=== PATIENT | female | born 1955 | race Caucasian/White ===

== ENCOUNTER → 2016-07-21 | Outpatient (CLI) | payer BC ==
--- NOTE | 2016-07-21 14:04 | MM ---
Reason for exam: additional evaluation requested from prior study. Last mammogram was performed 6 months ago. History: Patient is postmenopausal. Physical Findings: Nurse did not find any significant physical abnormalities on exam. MG 3D Diag Mammo W/Cad OMA Bilateral CC and MLO view(s) were taken. Prior study comparison: January 25, 2016, right breast MG 3d diag mammo w/cad RT. June 27, 2015, right breast MG 3d work up w/cad RT. The breast tissue is heterogeneously dense. This may lower the sensitivity of mammography. No significant new findings when compared with previous films. These results were verbally communicated with the patient and result sheet given to the patient on 07/21/16. ASSESSMENT: Benign, BI-RAD 2 RECOMMENDATION: Routine screening mammogram of both breasts in 1 year.
== END | disposition home or self-care (01) ==
LOC: RADMAMWWP 13:04
PROVIDERS: ATTEND Obstetrics & Gynecology
DX: R92.8 Other abnormal and inconclusive findings on diagnostic imaging of breast (principal)
CPT/HCPCS: G0204; G0279

== ENCOUNTER → 2016-08-07 | Outpatient (CLI) | payer BC ==
[2016-08-07 10:43] LABS: Basophils # (A) 0.1 k/uL (0-0.2); Basophils % (A) 1 %; CH 29.1; CHCM 30.9; Eosinophils # (A) 0.2 k/uL (0-0.7); Eosinophils % (A) 3 %; HCT 42.6 % (34.0-46.0); HDW 2.05; HGB 13.6 gm/dL (11.4-16.0); Luc # (Auto) 0.23; Luc % (Auto) 4; Lymphocytes # (A) 1.6 k/uL (1.0-4.8); Lymphocytes % (A) 24 %; MCH 30.2 pg (25.0-35.0); MCV 94.7 fL (80.0-100.0); Monocytes # (A) 0.5 k/uL (0-1.0); Monocytes % (A) 8 %; Neutrophils % (A) 61 %; RDW 13.5 % (11.5-15.5); WBC 6.5 k/uL (3.8-10.6); WBC (Perox) 6.96
== END | disposition home or self-care (01) ==
LOC: LABWHC1 09:55
PROVIDERS: ATTEND Family Medicine
DX: Z00.00 Encounter for general adult medical examination without abnormal findings (principal); F32.9 Major depressive disorder, single episode, unspecified; Z79.899 Other long term (current) drug therapy
CPT/HCPCS: 36415; 80061; 84443; 85025

== ENCOUNTER → 2017-09-28 | Outpatient (CLI) | payer OTHER ==
--- NOTE | 2017-09-29 14:34 | MM ---
Reason for exam: screening (asymptomatic). Last mammogram was performed 1 year and 2 months ago. History: Patient is postmenopausal. Physical Findings: A clinical breast exam by your physician is recommended on an annual basis and results should be correlated with mammographic findings. MG 3D Screening Mammo W/Cad Bilateral CC and MLO view(s) were taken. Prior study comparison: July 21, 2016, bilateral MG 3d diag mammo w/cad OMA. January 25, 2016, right breast MG 3d diag mammo w/cad RT. The breast tissue is heterogeneously dense. This may lower the sensitivity of mammography. No significant changes when compared with prior studies. ASSESSMENT: Benign, BI-RAD 2 RECOMMENDATION: Routine screening mammogram of both breasts in 1 year.
== END | disposition home or self-care (01) ==
LOC: RADMAMWWP 13:29
PROVIDERS: ATTEND Obstetrics & Gynecology
DX: Z12.31 Encounter for screening mammogram for malignant neoplasm of breast (principal)
CPT/HCPCS: 77063; 77067

== ENCOUNTER → 2019-03-01 | Outpatient (CLI) | payer OTHER ==
--- NOTE | 2019-03-01 10:31 | ECHOF ---
Referral Reason:I20.9 Angina pectoris, unspecified MEASUREMENTS -------- HEIGHT: 160.0 cm WEIGHT: 104.3 kg BP: 179/80 RVIDd: 3.2 cm (< 3.3) IVSd: 1.3 cm (0.6 - 1.1) LVIDd: 3.9 cm (3.9 - 5.3) LVPWd: 1.3 cm (0.6 - 1.1) IVSs: 1.7 cm LVIDs: 2.4 cm LVPWs: 1.6 cm LA Diam: 3.3 cm (2.7 - 3.8) LAESV Index (A-L): 25.48 ml/m Ao Diam: 2.5 cm (2.0 - 3.7) AV Cusp: 1.1 cm (1.5 - 2.6) MV EXCURSION: 12.495 mm (> 18.000) MV EF SLOPE: 64 mm/s (70 - 150) EPSS: 0.2 cm MV E Cb: 0.93 m/s MV DecT: 216 ms MV A Cb: 1.09 m/s MV E/A Ratio: 0.85 FINDINGS -------- Sinus rhythm. This was a technically difficult study with suboptimal views. The left ventricular size is normal. There is mild concentric left ventricular hypertrophy. Overa ll left ventricular systolic function is normal with, an EF between 60 - 65 %. The right ventricle is normal in size. Normal LA size by volume 22+/-6 ml/m2. The right atrium is normal in size. Lumason used Interatrial and interventricular septum intact. The aortic valve is trileaflet and appears structurally normal. The mitral valve is normal. The tricuspid valve appears structurally normal. The pulmonic valve was not well visualized. The aortic root size is normal. IVC Not well visulized. There is no pericardial effusion. CONCLUSIONS -------- 1. Sinus rhythm. 2. This was a technically difficult study with suboptimal views. 3. The left ventricular size is normal. 4. There is mild concentric left ventricular hypertrophy. 5. Overall left ventricular systolic function is normal with, an EF between 60 - 65 %. 6. The right ventricle is normal in size. 7. Normal LA size by volume 22+/-6 ml/m2. 8. The right atrium is normal in size. 9. Lumason used 10. Interatrial and interventricular septum intact. 11. The aortic valve is trileaflet and appears structurally normal. 12. The mitral valve is normal. 13. The tricuspid valve appears structurally normal. 14. The pulmonic valve was not well visualized. 15. The aortic root size is normal. 16. IVC Not well visulized. 17. There is no pericardial effusion. HOG PUSHER: Radha Gates RDCS
--- NOTE | 2019-03-01 13:35 | EST ---
EXERCISE STRESS AGE: 63 SEX: Female HT: 5'3" WT: 230 pounds PROTOCOL: Lexiscan Cardiolite STAGE: DURATION OF EXERCISE: HEART RATE REST: 90 BLOOD PRESSURE REST: 161/89 MAXIMUM HEART RATE ACHIEVED: 105 MAXIMUM BLOOD PRESSURE: 151/77 85% MPHR: 100% MPHR: METS: INDICATIONS: Angina pectoris CLINICAL INFORMATION: This is a Lexiscan stress test. Baseline EKG revealed normal sinus rhythm with a voltage criteria for LVH, nonspecific ST abnormality. With Lexiscan administration, heart rate changed from 90 to 99 beats per minute. Blood pressure changed from 160/89 to 151/77. EKG remained unremarkable. By EKG criteria, this is an unremarkable stress test with minor resting EKG changes. The nuclear scan results which are more pertinent will be reported by the radiologist. MMODL / IJN: [id number] /
--- NOTE | 2019-03-01 14:33 | NM ---
EXAMINATION TYPE: NM stress lexiscan cardiolite DATE OF EXAM: 03/01/2019 COMPARISON: NONE HISTORY: Angina pectoris. History of hypercholesteremia and family history of heart attack in mom wit h chest pain. TECHNIQUE: After the intravenous administration of 9.64 mCi Tc 99m Sestamibi - Cardiolite resting SP ECT images acquired 55 minutes post injection. The patient received 0.4mg Lexiscan, 26.1 mCi Tc 99m Sestamibi - Stress images obtained [address] injection FINDINGS: Review of stress and rest SPECT images demonstrates area of diminished color intensity on stress imag es versus rest images involving septal wall seen best on worse on the long axis images mid to apical segments in which acute ischemia cannot be excluded. Gated analysis shows overall estimated ejection fraction of 59 %. IMPRESSION: Cannot exclude stress-induced ischemia involving septal wall. Need to further investigate by direct catheter angiogram should be based on clinical correlation.
== END | disposition home or self-care (01) ==
LOC: RADNMMAIN 07:54
PROVIDERS: ATTEND Family Medicine
DX: I51.7 Cardiomegaly (principal)
CPT/HCPCS: 93017; 93306; 78452; A9500; Q9950

== ENCOUNTER 2019-03-29 06:34 | Day surgery (SDC) | payer OTHER ==
[2019-03-22 11:44] VITALS: BMI 40.7
[~2019-03-29 06:34] MED LIST: ALPRAZolam 0.25 MG TAB PO PRN; ALPRAZolam 0.5 MG TAB PO PRN; ASPIRIN 325 MG TAB PO STA; ATORVASTATIN 80 MG TAB PO STA; NITROGLYCERIN SL TABS 0.4 MG TAB SUBLINGUAL PRN; SODIUM CHLORIDE 0.9% 1,000 ML in EMPTY BAG 1 BAG IV ONE
[2019-03-29 07:21] LABS: Basophils # (A) 0.1 k/uL (0-0.2); Basophils % (A) 1 %; Eosinophils # (A) 0.4 k/uL (0-0.7); Eosinophils % (A) 4 %; HCT 43.4 % (34.0-46.0); HGB 13.7 gm/dL (11.4-16.0); Lymphocytes # (A) 2.4 k/uL (1.0-4.8); Lymphocytes % (A) 24 %; MCH 29.4 pg (25.0-35.0); MCHC 31.6 g/dL (31.0-37.0); MCV 93.1 fL (80.0-100.0); Mean Platelet Volume 6.8; Monocytes # (A) 0.8 k/uL (0-1.0); Monocytes % (A) 8 %; Neutrophils % (A) 60 %; Platelet Count 356 k/uL (150-450); RBC 4.66 m/uL (3.80-5.40); RDW 13.1 % (11.5-15.5); WBC 9.9 k/uL (3.8-10.6)
[2019-03-29 07:34] LABS: African American GFR (CKD) >90 (>60 ml/min/1.73 sqM); Anion Gap 10 mmol/L; Blood Urea Nitrogen 13 mg/dL (7-17); Calcium 9.7 mg/dL (8.4-10.2); Carbon Dioxide 23 mmol/L (22-30); Chloride 107 mmol/L (98-107); Glucose 121 mg/dL (74-99); Non-African American GFR(CKD) >90 (>60 ml/min/1.73 sqM); Potassium 4.5 mmol/L (3.5-5.1); Sodium 140 mmol/L (137-145)
[2019-03-29] MEDS ORDERED: fentaNYL (PF) 50 MCG/ML 2 ML AMP IVP ONE ×2 (07:49→08:01)
[2019-03-29] MEDS ORDERED: LIDOCAINE 1% INJ 10MG/ML (20 ML MDV) SQ ONE ×4 (07:49→09:29)
[2019-03-29] MEDS ORDERED: MIDAZOLAM 2 MG/2 ML VIAL IVP ONE (07:49)
[2019-03-29] MEDS ORDERED: BIVALIRUDIN BOLUS 250 MG/50 ML IV ONE (09:00)
[2019-03-29] MEDS ORDERED: BIVALIRUDIN 250 MG in SODIUM CHLORIDE 0.9% 50 ML IV ONE (09:01)
[2019-03-29] MEDS ORDERED: MIDAZOLAM 2 MG/2 ML VIAL IV ONE (09:03)
[2019-03-29] MEDS ORDERED: IOPAMIDOL-370 125ML BTL INJ ONE (09:10)
[2019-03-29] MEDS ORDERED: TICAGRELOR 90 MG TAB PO ONE (09:14)
[2019-03-29] MEDS ORDERED: NITROGLYCERIN 1000MCG/10ML SYRINGE INTRACORON ONE (09:23)
[2019-03-29] MEDS ORDERED: IOPAMIDOL-370 100ML BTL INJ ONE (09:31)
[2019-03-29] MEDS ORDERED: NITROGLYCERIN SL TABS 0.4 MG TAB SUBLINGUAL PRN (09:36)
[2019-03-29] MEDS ORDERED: RX INFO: IV CONTRAST WAS GIVEN 1 EACH MISC MISCELLANE PRN (09:36)
[2019-03-29] MEDS ORDERED: ATROPINE SULFATE 0.1 MG/ML 10ML SYRINGE IV PRN (09:36)
[2019-03-29] MEDS ORDERED: ZOLPIDEM 5 MG TAB PO PRN (09:36)
[2019-03-29] MEDS ORDERED: MAG HYDROX/AL HYDROX/SIMETH 30 ML CUP PO PRN (09:36)
[2019-03-29] MEDS ORDERED: SODIUM CHLORIDE 0.9% 1,000 ML IV SCH (09:45)
--- NOTE | 2019-03-29 11:17 | CC ---
CARDIAC CATHETERIZATION REPORT INDICATION: Chest pain, shortness of breath with an abnormal nuclear scan showing ischemia involving the septum. PROCEDURE NOTE: After obtaining informed consent, left heart catheterization and coronary angiogram were performed via the left femoral artery using standard Soy catheters. Patient tolerated the procedure well without any obvious immediate complications. Patient received moderate conscious sedation. Total sedation time was 27 minutes. I initially attempted vascular access on the right side, but I was unable to locate the femoral artery. FINDINGS: 1. HEMODYNAMICS: Left ventricular end-diastolic pressure is 18 mm. There is no significant gradient across the aortic valve. 2. LEFT VENTRICULOGRAM: Left ventriculogram is not performed. 3. ANGIOGRAPHIC DATA: LEFT MAIN CORONARY ARTERY: Left main coronary artery is a normal-sized vessel and is free of stenosis. Divides into left anterior descending coronary artery and circumflex coronary artery. LAD shows a 95% stenosis in its midportion. There are [id number] collaterals to the distal LAD. One of the second diagonal branch has a focal 80%-90% stenosis. Circumflex coronary artery which is a nondominant vessel shows about 40% stenosis. Right coronary artery is a large dominant vessel and is free of significant stenosis. CONCLUSION: A 95% focal stenosis involving LAD and an 80%-90% stenosis involving diagonal branch. PLAN: Patient will undergo angioplasty of these 2 vessels. Will manage the circulation medically. If necessary, repeat a stress test on her and if she has ischemia in the circumflex, will bring her back and do an angioplasty of that. MMODL / IJN: [id number] /
--- NOTE | 2019-03-29 11:23 | LTR ---
DATE OF SERVICE: 03/29/2019 RE: Eileen Minaya Dear Ezequiel; I performed cardiac catheterization on Eileen Minaya. The detailed catheterization note is included for your records. In brief, cardiac catheterization reveals focal 95% stenosis involving LAD and an 80%- 90% stenosis involving diagonal branch. These explain her symptoms and the abnormal stress test. She will undergo angioplasty with stent placement of the same. Thank you for giving me the privilege to participate in this pleasant lady. Sincerely, MD PACHECO Romeo / TERESA: [id number] /
[2019-03-29] MEDS ORDERED: METOPROLOL SUCCINATE (ER) 25 MG TAB.ER.24H PO SCH (12:30)
--- NOTE | 2019-03-29 15:53 | PTCA ---
PERCUTANEOUSTRANS CORORONARY ANGIOGRAPHY DATE OF SERVICE: 03/29/2019 PERFORMING PHYSICIAN: Giorgi Earl MD PROCEDURES PERFORMED: 1. Successful stenting of the proximal left anterior descending artery using a 2.75 x 12 mm Xience drug-eluting stent with excellent angiographic results and reduction of stenosis from 99% to 0%. 2. Successful stenting of the proximal first diagonal branch of the left anterior descending artery using a 2.75 x 12 mm Xience drug-eluting stent with excellent angiographic results and reduction of stenosis from 99% to 0%. INDICATION: This is a 63-year-old female patient with hypertension and dyslipidemia who sees Dr. Delaney in the office as an outpatient who was experiencing recently intermittent episodes of atypical chest discomfort. She underwent myocardial perfusion imaging stress test and that revealed septal ischemia. She underwent heart catheterization by Dr. Delaney and that revealed critical disease involving both the proximal LAD and proximal first diagonal branch of the LAD. PCI was advised. APPROACH: Right common femoral artery. COMPLICATIONS: None. LEVEL OF SEDATION: Moderate, with sedation length of 32 minutes. PROCEDURE DESCRIPTION: Please refer to diagnostic heart catheterization that was performed by Dr. Delaney earlier today. Anticoagulation was initiated using Angiomax. Subsequently the left main was engaged using JL4 guide. I did wire the LAD using a long run-through wire and I wired the diagonal using a short run-through wire. Subsequently I did predilatation of both the LAD and diagonal using a 2.5 x 12 mm balloon. Then I did deploy for both the LAD and diagonal 2.75 x 12 mm Xience LATISHA. The stents were positioned under fluoroscopy guidance and both were deployed under 14 atmospheres for 20 seconds. The following angiogram showed excellent angiographic results and the procedure was completed without any complication. POST-PROCEDURE MANAGEMENT: 1. Dual anti-platelet therapy. 2. Risk factor modifications. 3. Follow up with the patient. MMODL / IJN: [id number] /
[2019-03-29] MEDS ORDERED: amLODIPine 5 MG TAB PO STA (20:44)
[2019-03-29] MEDS: TICAGRELOR 90 MG TAB PO SCH (20:56)
[2019-03-29] MEDS ORDERED: ASPIRIN 325 MG TAB PO SCH (21:00)
[2019-03-30 06:02] LABS: Basophils % (A) 0 %; Eosinophils # (A) 0.3 k/uL (0-0.7); Eosinophils % (A) 3 %; HCT 40.1 % (34.0-46.0); HGB 13.2 gm/dL (11.4-16.0); Lymphocytes % (A) 18 %; MCH 30.3 pg (25.0-35.0); MCHC 32.8 g/dL (31.0-37.0); MCV 92.4 fL (80.0-100.0); Mean Platelet Volume 6.2; Monocytes # (A) 0.8 k/uL (0-1.0); Monocytes % (A) 7 %; Neutrophils % (A) 71 %; Platelet Count 332 k/uL (150-450); RBC 4.34 m/uL (3.80-5.40); RDW 12.9 % (11.5-15.5); WBC 11.4 k/uL (3.8-10.6)
[2019-03-30 06:09] LABS: African American GFR (CKD) >90 (>60 ml/min/1.73 sqM); Anion Gap 5 mmol/L; Blood Urea Nitrogen 12 mg/dL (7-17); Calcium 9.1 mg/dL (8.4-10.2); Carbon Dioxide 26 mmol/L (22-30); Chloride 106 mmol/L (98-107); Glucose 112 mg/dL (74-99); Non-African American GFR(CKD) >90 (>60 ml/min/1.73 sqM); Potassium 4.3 mmol/L (3.5-5.1); Sodium 137 mmol/L (137-145)
[2019-03-30] MEDS ORDERED: LEVOTHYROXINE 100 MCG TAB PO SCH (06:30)
[2019-03-30 08:01] VITALS: BP 152/91; PULSE 91; RESP 20; TEMP 98
[2019-03-30] MEDS: TICAGRELOR 90 MG TAB PO SCH (08:03)
[2019-03-30] MEDS ORDERED: ASPIRIN 81 MG PO SCH (09:00)
[2019-03-30] MEDS ORDERED: amLODIPine 5 MG TAB PO SCH (09:00)
--- NOTE | 2019-03-30 11:33 | P.DS ---
Providers Attending physician: Jacob Delaney Consults: 03/29/19 09:36 Consult Physician Routine Consulting Provider: [facility] Consult Reason/Comments: Post Interventional patient Do you want consulting provider notified?: Already Contacted Primary care physician: Ezequiel Kinney [facility] Course: This is a pleasant 63-year-old female brought into the hospital electively secondary to chest discomfort with an abnormal nuclear scan showing evidence of ischemia in the septal area. She underwent cardiac catheterization revealing a 95% focal stenosis involving the LAD and an 80-90% stenosis of the diagonal branch. She underwent successful stenting of the proximal LAD as well as the proximal diagonal branch. She has been initiated on Brilinta, amlodipine and atorvastatin. She is seen and examined resting comfortably in bed in no acute distress. She denies symptoms of chest discomfort, shortness of breath, dizziness or palpitations. Blood pressure 152/91 heart rate 91 afebrile maintaining oxygen saturation on room air. Laboratory data reviewed, WBC 11.4, hemoglobin 13.2, platelets 332, sodium 137, potassium 4.3, creatinine 0.69. Repeat EKG this morning reveals sinus mechanism with no acute changes. GENERAL: Well-appearing, well-nourished and in no acute distress. NECK: Supple without JVD or thyromegaly. LUNGS: Breath sounds clear to auscultation bilaterally. Respiration equal and unlabored. No wheezes, rales or rhonchi. HEART: Regular rate and rhythm without murmurs, rubs or gallops. S1 and S2 heard. EXTREMITIES: Normal range of motion, no edema. No clubbing or cyanosis. Periph eral pulses intact. Right femoral area with some mild ecchymosis noted. Left femoral access site clean, dry and intact with no hematoma, ecchymosis, bleeding or tenderness. ASSESSMENT Coronary artery disease s/p successful multi-vessel PCI Hypertension Dyslipidemia PLAN Stable for discharge home. Discharge medications to include brillinta 90 mg BID, aspirin 81 mg daily, toprol 25 mg daily, atorvastatin 80 mg daily, amlodipine 5 mg daily. She will also continue her levothyroxine as previously ordered per PCP. Follow up in the office with Dr. Delaney 04/06 at 0830. Limited activity involving her lower extremities for the next 72 hours, no exercise or excessive leg movement. Nurse Practitioner note has been reviewed, I agree with a documented findings and plan of care. Patient was seen and examined. Patient Condition at Discharge: Stable Plan - Discharge Summary Discharge Rx Participant: Yes New Discharge Prescriptions: New Aspirin 81 mg PO DAILY chew Ticagrelor [Brilinta] 90 mg PO BID #60 tab Atorvastatin [Lipitor] 80 mg PO HS #90 tab amLODIPine [Norvasc] 5 mg PO DAILY #90 tab Continue Levothyroxine Sodium [Synthroid] 100 mcg PO DAILY Metoprolol Succinate (ER) [Toprol XL] 25 mg PO W/LUNCH Discontinued Aspirin 325 mg PO HS Discharge Medication List Levothyroxine Sodium [Synthroid] 100 mcg PO DAILY 04/21/14 [History] Metoprolol Succinate (ER) [Toprol XL] 25 mg PO W/LUNCH 03/22/19 [History] Aspirin 81 mg PO DAILY chew 03/30/19 [Rx] Atorvastatin [Lipitor] 80 mg PO HS #90 tab 03/30/19 [Rx] Ticagrelor [Brilinta] 90 mg PO BID #60 tab 03/30/19 [Rx] amLODIPine [Norvasc] 5 mg PO DAILY #90 tab 03/30/19 [Rx] Follow up Appointment(s)/Referral(s): Jacob Delaney MD [STAFF PHYSICIAN] - 04/06/19 8:30 am (Thursday) Patient Instructions/Handouts: *Surgery [facility] - After Heart Catheterization - [employer] Instructions, Left Heart Catheterization (IP), Heart Healthy Diet (DC) Activity/Diet/Wound Care/Special Instructions: CARDIAC CATH 1. Support your puncture site by applying firm, steady pressure whenever you cough, laugh, sneeze or bear down to have a bowel movement (2-day restriction). 2. Watch for any excessive bruising, active bleeding, a firm knot forming under your skin, extreme tenderness and signs of infection (redness, swelling, fever). 3. Shower daily, do not soak puncture in a tub bath, jacuzzi, pool, peres etc. for 1 week. This is to prevent risk of infection. 4. Drink plenty of fluids the day of and day after your procedure to flush contrast dye out of your kidneys. 5. Take all medications as directed. Never stop any new medication without your physicians OK. 6. No driving for 2 days after procedure. 7. 10- pound weight lifting restriction for 1 week. 8. Low sodium/low fat diet. 9. Activity limited until follow up appointment with your administrative support manager. In case of any problems, please call [facility], [facility]ez @ [phone].
[2019-03-30] MEDS ORDERED: ATORVASTATIN 80 MG TAB PO SCH (21:00)
== END 2019-03-30 11:58 | disposition home or self-care (01) ==
LOC: CATHCVL 06:34 → 3SCARD 09:32 → CATHCVL 03-30 11:58
PROVIDERS: ATTEND Internal Medicine Cardiovascular Disease
DX: I25.10 Atherosclerotic heart disease of native coronary artery without angina pectoris (principal); I10 Essential (primary) hypertension; E78.5 Hyperlipidemia, unspecified; E07.9 Disorder of thyroid, unspecified; Z79.890 Hormone replacement therapy; Z79.899 Other long term (current) drug therapy; Z88.2 Allergy status to sulfonamides; Z90.89 Acquired absence of other organs; Z96.651 Presence of right artificial knee joint; Z82.49 Family history of ischemic heart disease and other diseases of the circulatory system
CPT/HCPCS: 93458; 80048 ×2; 85025 ×2; C9600; C9601; C1769 ×4; C1887; C1725; C1894; C1760; C1874; J2250; J2001; J3010; J0583; Q9967 ×2

== ENCOUNTER → 2019-06-28 | Outpatient (CLI) | payer OTHER ==
[2019-06-28 16:51] LABS: Chol/HDL Ratio 2.47; LDL Cholesterol,Calculated 74.8 mg/dL (0.0-131.0); VLDL Calculation 10.2 mg/dL (5.00-40.00)
== END | disposition home or self-care (01) ==
LOC: LABWHC1 09:56
PROVIDERS: ATTEND Internal Medicine Cardiovascular Disease
DX: E78.2 Mixed hyperlipidemia (principal)
CPT/HCPCS: 36415; 80061; 84450; 84460

== ENCOUNTER → 2020-03-23 | Outpatient (CLI) | payer OTHER ==
--- NOTE | 2020-03-26 12:07 | MM ---
Reason for exam: screening (asymptomatic). Last mammogram was performed 1 year and 5 months ago. History: Patient is postmenopausal. Physical Findings: A clinical breast exam by your physician is recommended on an annual basis and results should be correlated with mammographic findings. MG 3D Screening Mammo W/Cad Bilateral CC and MLO view(s) were taken. Prior study comparison: October 27, 2018, bilateral MG 3d screening mammo w/cad. September 28, 2017, bilateral MG 3d screening mammo w/cad. The breast tissue is heterogeneously dense. This may lower the sensitivity of mammography. No significant changes when compared with prior studies. ASSESSMENT: Negative, BI-RAD 1 RECOMMENDATION: Routine screening mammogram of both breasts in 1 year.
== END | disposition home or self-care (01) ==
LOC: RADMAMWWP 11:06
PROVIDERS: ATTEND Obstetrics & Gynecology
DX: Z12.31 Encounter for screening mammogram for malignant neoplasm of breast (principal)
CPT/HCPCS: 77063; 77067

== ENCOUNTER → 2021-03-25 | Outpatient (CLI) | payer MEDICARE, OTHER ==
--- NOTE | 2021-03-26 23:29 | BD ---
EXAMINATION TYPE: Axial Bone Density DATE OF EXAM: 03/25/2021 COMPARISON: NONE CLINICAL HISTORY: Height: 5 FT 2 IN Weight: 231 FRAX RISK QUESTIONS: Alcohol (3 or more units per day): NO Family History (Parent hip fracture): NO Glucocorticoids (More than 3mos): NO (Ex: prednisone, prednisolone, methylprednisolone, dexamethasone, and hydrocortisone). History of Fracture in Adulthood: NO Secondary Osteoporosis: 1. Type 1 Diabetes: NO 2. Hyperthyroidism: NO 3. Menopause before 45: NO 4. Malnutrition: NO 5. Chronic liver disease: NO Rheumatoid Arthritis: NO Current Tobacco Use: NO RISK FACTORS HISTORY OF: Surgery to Spine/Hip(right/left)/Wrist (right/left): NO Family History of Osteoporosis: YES Active: YES Diet low in dairy products/other sources of calcium: NO Postmenopausal woman: YES Take estrogen and/or progesterone medications: NO Lost more than 2 inches in height since high school: NO Frequent falls: NO Poor Health: GOOD Hyperparathyroidism: NO Adrenal Insufficiency: NO MEDICATIONS: Thyroid Medications: YES Which medication: LEVOTHYROXINE How Long: APPROX 8 YEARS Additional Medications: LEVOTHYROXINE, ATORVASTATIN, AMLODIPINE, TOPROL, ASPIRIN Additional History: EXAM MEASUREMENTS: Bone mineral densitometry was performed using the [employer]. Bone mineral density as measured about the Lumbar spine is: ----- L1-L4(G/cm2): 1.270 T Score Values are as follows: ----- L2: 0.1 ----- L3: 0.8 ----- L4: 1.3 ----- L1-L4: 0.7 BASELINE Bone mineral density about the R hip (g/cm2): 0.745 Bone mineral density about the L hip (g/cm2): 0.761 T Score values are as follows: -----R Neck: -2.1 -----L Neck: -2.0 -----R Total: -1.2 -----L Total: -0.6 BASELINE IMPRESSION: Osteopenia (T Score between -2.5 and -1). There is slightly increased risk of fracture and the patient may be considered for treatment. Re-Screen 2-5 years. NOTE: T-SCORE=SD OF THE YOUNG ADULT MEAN.
== END | disposition home or self-care (01) ==
LOC: RADBDWWP 15:01
PROVIDERS: ATTEND Family Medicine
DX: M85.89 Other specified disorders of bone density and structure, multiple sites (principal); Z78.0 Asymptomatic menopausal state
CPT/HCPCS: 77080

== ENCOUNTER → 2021-04-16 | Outpatient (CLI) | payer MEDICARE ==
--- NOTE | 2021-04-22 11:17 | MM ---
Reason for exam: screening (asymptomatic). Last mammogram was performed 1 year and 1 month ago. History: Patient is postmenopausal and has history of other cancer at age 65. Physical Findings: A clinical breast exam by your physician is recommended on an annual basis and results should be correlated with mammographic findings. MG 3D Screening Mammo W/Cad Bilateral CC and MLO view(s) were taken. Prior study comparison: March 23, 2020, bilateral MG 3d screening mammo w/cad. October 27, 2018, bilateral MG 3d screening mammo w/cad. The breast tissue is heterogeneously dense. This may lower the sensitivity of mammography. No significant changes when compared with prior studies. ASSESSMENT: Negative, BI-RAD 1 RECOMMENDATION: Routine screening mammogram of both breasts in 1 year.
== END | disposition home or self-care (01) ==
LOC: RADMAMWWP 12:39
PROVIDERS: ATTEND Family Medicine
DX: Z12.31 Encounter for screening mammogram for malignant neoplasm of breast (principal); Z78.0 Asymptomatic menopausal state
CPT/HCPCS: 77063; 77067

== ENCOUNTER → 2022-04-23 | Outpatient (CLI) | payer MEDICARE ==
--- NOTE | 2022-04-24 09:02 | MM ---
Reason for Exam: Screening (asymptomatic). Last screening mammogram was performed 12 month(s) ago. Patient History: Menarche at age 14. First Full-Term at age 27. Postmenopausal. Patient has history of breast feeding. Risk Values: Megan 5 year model risk: 1.7%. NCI Lifetime model risk: 6.1%. Prior Study Comparison: 10/27/2018 Bilateral Screening Mammogram, [facility]. 03/23/2020 Bilateral Screening Mammogram, [facility]. 04/16/2021 Bilateral Screening Mammogram, [facility]. Tissue Density: The breast tissue is heterogeneously dense. This may lower the sensitivity of mammography. Findings: Analyzed By CAD. There is no suspicious group of microcalcifications or new suspicious mass in either breast. Overall Assessment: Negative, BI-RAD 1 Management: Screening Mammogram of both breasts in 1 year. A clinical breast exam by your physician is recommended on an annual basis and results should be correlated with mammographic findings. [facility] will attempt to contact patient to return for supplemental views and ultrasound if indicated. Electronically signed and approved by: Josiah Mehta DO
== END | disposition home or self-care (01) ==
LOC: RADMAMWWP 10:37
PROVIDERS: ATTEND Family Medicine
DX: Z12.31 Encounter for screening mammogram for malignant neoplasm of breast (principal); Z78.0 Asymptomatic menopausal state
CPT/HCPCS: 77063; 77067

== ENCOUNTER → 2023-03-09 | Outpatient (CLI) | payer MEDICARE ==
[2023-03-09 15:53] LABS: INR 0.97 sec (0.93-1.11); Prothrombin Time 10.5 sec (9.9-11.9)
[2023-03-09 16:53] LABS: Basophils # (A) 0.08 X 10*3/uL (0.00-0.10); Eosinophils # (A) 0.33 X 10*3/uL (0.04-0.35); Eosinophils % (A) 4.3 %; HCT 44.6 % (37.2-46.3); HGB 14.2 g/dL (12.0-15.0); Lymphocytes % (A) 19.6 %; MCHC 31.8 g/dL (32.0-37.0); MCV 94.3 FL (80.0-97.0); Mean Platelet Volume 10.3 FL (9.5-12.2); Monocytes # (A) 0.86 X 10*3/uL (0.20-1.00); Monocytes % (A) 11.3 %; NRBC Per 100 WBC 0 X 10*3/uL (0.00-0.01); Neutrophils # (A) 4.85 X 10*3/uL (1.80-7.70); Neutrophils % (A) 63.5 %; Platelet Count 356 X 10*3/uL (140-440); RBC 4.73 X 10*6/uL (4.10-5.20); RDW 13.1 % (11.5-14.5); WBC 7.64 X 10*3/uL (4.50-10.00)
[2023-03-09 18:41] LABS: BUN/Creat Ratio 19.57 Ratio (12.00-20.00); Blood Urea Nitrogen 13.7 mg/dL (9.0-27.0); Chloride 104 mmol/L (96-109); Glucose 120 mg/dL (70-110); Potassium 4.7 mmol/L (3.5-5.5); Sodium 140 mmol/L (135-145)
== END | disposition home or self-care (01) ==
LOC: LABWHC1 10:31
PROVIDERS: ATTEND Orthopaedic Surgery
DX: Z01.812 Encounter for preprocedural laboratory examination (principal); M17.12 Unilateral primary osteoarthritis, left knee; Z22.322 Carrier or suspected carrier of Methicillin resistant Staphylococcus aureus
CPT/HCPCS: 36415; 80048; 85025; 85610; 87070

== ENCOUNTER 2023-04-13 12:48 | Observation (INO) | payer MEDICARE ==
[2023-03-25 10:06] VITALS: BMI 32.8
--- NOTE | 2023-04-13 07:37 | HP ---
HISTORY AND PHYSICAL Surgery is scheduled for . HISTORY OF PRESENT ILLNESS: Eileen Minaya is a 67-year-old patient seen with symptomatic left knee osteoarthritis. After treatment options were discussed, she elected to proceed with left total knee arthroplasty. Consent was obtained. Cardiac clearance was provided by Dr. Delaney. Medical clearance by Dr. Kinney. PAST MEDICAL HISTORY: Hypertension, hyperlipidemia, hypothyroidism. PAST SURGICAL HISTORY: Noncontributory. DAILY MEDICATIONS: 1. Amlodipine. 2. Aspirin. 3. Atorvastatin. 4. Levothyroxine. 5. Metoprolol. ALLERGIES: None reported. SOCIAL HISTORY: She denies tobacco use. PHYSICAL EVALUATION OF THE LEFT KNEE: Range of motion is negative 4 to 115 degrees. Tenderness, medial joint line. Crepitus, medial patellofemoral compartments. Ligaments stable. Hip rotation without pain. Distal neurovascular exam is intact. IMAGING STUDIES: Left knee radiographs reveal severe osteoarthritic changes. IMPRESSION: 1. Left knee osteoarthritis. 2. Hypertension. 3. Hyperlipidemia. 4. Hypothyroidism. PLAN: Left total knee arthroplasty. MMODL / IJN: [id number] /
[~2023-04-13 12:48] MED LIST changes: +ACETAMINOPHEN TAB 500 MG TAB PO PRN; -ALPRAZolam 0.25 MG TAB PO PRN; -ALPRAZolam 0.5 MG TAB PO PRN; -ASPIRIN 325 MG TAB PO STA; -ATORVASTATIN 80 MG TAB PO STA; +DEXAMETHASONE SOD PHOSPHATE 4 MG/ML 1 ML VIAL IV ONE; +LIDOCAINE 1% (10MG/ML) FOR IV START INTRADERMA PRN; +MELOXICAM 7.5 MG TAB PO PRN; +MIDAZOLAM 2 MG/2 ML VIAL IV PRN; -NITROGLYCERIN SL TABS 0.4 MG TAB SUBLINGUAL PRN; +ONDANSETRON 4 MG/2 ML VIAL IVP ONE; -SODIUM CHLORIDE 0.9% 1,000 ML in EMPTY BAG 1 BAG IV ONE; +TRANEXAMIC 1,000 MG/100ML-NACL 1,000 MG in SALINE 1 100ML.BAG IVPB PRN; +fentaNYL (PF) 50 MCG/ML 2 ML AMP IV PRN
[2023-04-13] MEDS: LACTATED RINGERS 1,000 ML IV SCH ×2 (13:02→23:11)
[2023-04-13] MEDS ORDERED: DEXAMETHASONE SOD PHOSPHATE 4 MG/ML 1 ML VIAL IVP ONE (13:45)
[2023-04-13] MEDS ORDERED: ONDANSETRON 4 MG/2 ML VIAL IVP ONE (13:46)
[2023-04-13] MEDS ORDERED: fentaNYL (PF) 50 MCG/ML 2 ML AMP IVP ONE (14:00)
[2023-04-13] MEDS ORDERED: MIDAZOLAM 2 MG/2 ML VIAL IVP ONE (14:00)
[2023-04-13] MEDS ORDERED: GLYCOPYRROLATE 0.2 MG/ML 2 ML VIAL ONE (15:22)
[2023-04-13] MEDS ORDERED: SUCCINYLCHOLINE CHLORIDE 200 MG/10 ML VIAL IV ONE (15:22)
[2023-04-13] MEDS ORDERED: LIDOCAINE 1% INJ 10MG/ML (20 ML MDV) ONE (15:22)
[2023-04-13] MEDS ORDERED: SODIUM CHLORIDE 0.9% (PF) 10 ML VIAL ONE (15:22)
[2023-04-13] MEDS ORDERED: TRANEXAMIC 1,000 MG/100ML-NACL PREMIX BAG ONE (15:22)
[2023-04-13] MEDS ORDERED: ROPIVACAINE 5 MG/ML 30 ML VIAL ONE (15:22)
[2023-04-13] MEDS ORDERED: ROCURONIUM 10 MG/ML (5 ML VIAL) IV ONE (15:22)
[2023-04-13] MEDS ORDERED: NEOSTIGMINE 1 MG/ML 10 ML VIAL ONE (15:22)
[2023-04-13] MEDS ORDERED: MIDAZOLAM 2 MG/2 ML VIAL ONE (15:22)
[2023-04-13] MEDS ORDERED: fentaNYL (PF) 50 MCG/ML 2 ML AMP ONE (15:22)
[2023-04-13] MEDS ORDERED: PROPOFOL 10 MG/ML 20 ML VIAL IV ONE (15:22)
[2023-04-13] MEDS ORDERED: ceFAZolin 1,000 MG in SODIUM CHLORIDE 0.9% 1,000 ML IRRIGATION ONE (15:39)
[2023-04-13] MEDS ORDERED: IV FLUID CONTINUATION 1,000 ML IV ONE (15:40)
[2023-04-13] MEDS ORDERED: HYDROmorphone 0.5 MG/0.5 ML SYRINGE IVP PRN ×2 (17:13)
[2023-04-13] MEDS ORDERED: HYDROcodone/APAP 5-325MG 1 EACH TAB PO PRN (17:13)
[2023-04-13] MEDS ORDERED: ONDANSETRON 4 MG/2 ML VIAL IVP PRN (17:13)
[2023-04-13] MEDS ORDERED: NALOXONE 0.4 MG/ML 1 ML VIAL IV PRN (17:13)
--- NOTE | 2023-04-13 17:13 | P.OP ---
Date of Procedure: 04/13/23 Preoperative Diagnosis: Left knee osteoarthritis Postoperative Diagnosis: Left knee osteoarthritis Procedure(s) Performed: Left total knee arthroplasty Implants: 1. Depuy attune size 5 narrow left cruciate retaining cemented femur 2. Depuy attune size 4 fixed bearing cemented tibial baseplate 3. Depuy attune size 5 fixed bearing cruciate retaining 12 mm polyethylene tibial insert 4. Depuy attune 35 mm all polyethylene cemented patella Anesthesia: GETA, regional (Adductor canal catheter, Ipack block) Surgeon: Thom Llanos Hairspring Inspector #1: Brigido Hernadez Estimated Blood Loss (ml): 55 Pathology: none sent Condition: stable Disposition: PACU Indications for Procedure: 67-year-old patient seen with symptomatic left knee osteoarthritis. After having treatment options discussed, she elected to proceed with total knee arthroplasty. Operative Findings: See description of procedure Description of Procedure: Patient was taken to the operative suite after having an adductor canal catheter placed by the department of anesthesia. Patient underwent a general anesthetic by the department of anesthesia. Patient was given preoperative IV intake antibiotics and TXA. A well-padded tourniquet was placed about the left lower extremity. The lower extremity was then prepped and draped in the normal sterile orthopedic fashion. The extremity was elevated, a tourniquet was insufflated to 300. A standard anterior incision was made sharply through skin. Dissection was taken down through the subcutaneous soft tissues down to the extensor mechanism. A medial arthrotomy was performed, patella was everted and knee was flexed. There was advanced osteoarthritis noted. I introduced my distal intramedullary femoral drill. I then introduced the distal femoral cutt ing jig. Iftikhar BALL secured the cutting jig with 2 pins. I held retractors in position while Iftikhar BALL performed the distal femoral resection through the guide area we now removed her distal femoral cutting guide. We now placed our 4-in-1 femoral cutting block and positioned and it was secured with 2 pins by Iftikhar BALL while I held the block in position. The distal femoral finishing was now completed. A proximal tibial cutting guide was positioned. I held the guide in the appropriate position with both hands well Iftikhar BALL inserted stabilizing pins into the guide. Proximal tibial cut was made. We now placed a trial femoral component into position, along with an appropriate size tibial tray and insert. We now took the knee through range of motion and had full extension good flexion and good overall soft tissue balance noted. The patella was everted and stabilized with 2 towel clips held by Iftikhar BALL while I performed a flush with patellar quad tendon utilizing a fresh sawblade. We templated the patella, appropriate drill holes were made. An appropriate trial patella was positioned, knee was taken through full range of motion with the patella tracking very nicely. The trial patella was removed. Drill holes were made through the femoral component. All trial components were removed after marking off the appropriate rotation of the tibia. Retractors were now positioned along the proximal tibia. An appropriate keel punch was made with the appropriate size tibial guide by myself on Iftikhar BALL assisted by holding retractors. At this point appropriate size implants were chosen and opened. The joint was irrigated copiously with pulse lavage mechanical irrigation. The wound was irrigated with pulse lavage mechanical irrigation. We mixed antibiotic methylmethacrylate. We placed the knee into flexion. We placed multiple retractors assisted by Iftikhar BALL to expose the proximal tibia. Once the methyl methacrylate was ready, the tibial component was cemented into place removing any excess methylmethacrylate form by both myself and Iftikhar BALL. The femoral component was cemented into place removing the removing any excess methylmethacrylate performed by both myself and Iftikhar BALL. We then inserted the appropriate size polyethylene tibial insert. We made sure that it was locked into position. We took the knee into full extension, and then back in a flexion making sure we had removed any excess methylmethacrylate. The patellar component was then cemented down and secured with clamp. Excess methylmethacrylate removed. We kept the knee in full extension, patellar clamp in position until methylmethacrylate had hardened. Once it had hardened the patellar clamp was removed. The knee was taken through full range of motion. The patella tracked nicely. There was good soft tissue balancing. The tourniquet was now released. Additional hemostasis was achieved via electrocautery. A second gram of TXA was given. The wound again was irrigated with pulse lavage mechanical irrigation. The extensor mechanism was repaired with Ethibond suture. We checked the repair with range of motion and it was stable. The subcutaneous soft tissues were repaired with Vicryl in layers. The skin was approximated with pernio/Dermabond. Sterile dressings were applied followed by loose web roll and Vinicius bandage. The patient was transferred to a bed, and taken to recovery in stable and satisfactory condition. Iftikhar BALL assisted with this complex procedure.
[2023-04-13] MEDS ORDERED: ROPIVACAINE 1,100 MG, SODIUM CHLORIDE 0.9% 500 ML 330 ML, EMPTY PAIN BALL 1 EACH MISCELLANE PRN ×2 (17:42)
[2023-04-13] MEDS: HYDROmorphone 0.5 MG/0.5 ML SYRINGE IVP PRN ×3 (17:49→21:27)
--- NOTE | 2023-04-13 17:51 | P.ANPRN ---
Procedure Note - Anesthesia - Nerve Block Performed Left Adductor Canal Infusion Time Out Performed: Yes (1400) Date of Procedure: 04/13/23 Procedure Start Time: 14:01 Procedure Stop Time: 14:08 Location of Patient: PreOp Indication: Acute Post-Operative Pain, Requested by Surgeon Specifically requested for management of pain by DrZoe: Thom Llanos Sedation Type: Sedate with meaningful contact maintained Preparation: Sterile Prep, Sterile Dressing Position: Supine Catheter Depth at Skin (cm): 7 Catheter: Indwelling Needle Types: Pajunk Needle Gauge: 18 Ultrasound used to visualize needle placement: Yes Ultrasound used to observe medication spread: Yes Injectate: 0.5% Ropivacaine (see comment for volume) (15cc+ 5cc nacl pf) Blood Aspirated: No Pain Paresthesia on Injection Noted: No Resistance on Injection: Normal Image Stored and Saved: Yes Events: Uneventful and Well Tolerated
--- NOTE | 2023-04-13 17:52 | P.ANPRN ---
Procedure Note - Anesthesia - Nerve Block Performed Left iPack Single Time Out Performed: Yes (1400) Date of Procedure: 04/13/23 Procedure Start Time: 14:09 Procedure Stop Time: 14:12 Location of Patient: PreOp Indication: Acute Post-Operative Pain, Requested by Surgeon Specifically requested for management of pain by DrZoe: Thom Llanos Sedation Type: Sedate with meaningful contact maintained Preparation: Sterile Prep Position: Supine Catheter: None Needle Types: Pajunk Needle Gauge: 21 Ultrasound used to visualize needle placement: Yes Ultrasound used to observe medication spread: Yes Injectate: 0.5% Ropivacaine (see comment for volume) (15cc+ 5cc nacl pf) Blood Aspirated: No Pain Paresthesia on Injection Noted: No Resistance on Injection: Normal Image Stored and Saved: Yes Events: Uneventful and Well Tolerated
--- NOTE | 2023-04-13 18:32 | XR ---
EXAMINATION TYPE: XR knee limited LT DATE OF EXAM: 04/13/2023 COMPARISON: None HISTORY: Postknee replaced TECHNIQUE: 2 view left knee FINDINGS: Tibial and femoral components in place. No acute fracture or dislocation is evident. Soft t issue postsurgical changes are evident. IMPRESSION: 1. No acute fracture post left knee replacement
[2023-04-13] MEDS ORDERED: ACETAMINOPHEN TAB 500 MG TAB PO PRN (19:48)
[2023-04-13] MEDS ORDERED: PANTOPRAZOLE 40 MG TABLET PO PRN (19:48)
[2023-04-13] MEDS ORDERED: ASCORBIC ACID 500 MG TAB PO SCH (20:00)
[2023-04-13] MEDS: ATORVASTATIN 80 MG TAB PO SCH (21:26)
[2023-04-13] MEDS: SENNOSIDES-DOCUSATE SODIUM 1 EACH TAB PO SCH (21:26)
[2023-04-13] MEDS: EZETIMIBE 10 MG TAB PO SCH (21:26)
[2023-04-13] MEDS: ENOXAPARIN 30 MG/0.3 ML SYRINGE SQ SCH (21:27)
[2023-04-14] MEDS: LACTATED RINGERS 1,000 ML IV SCH ×4 (03:19→22:33)
[2023-04-14] MEDS: HYDROmorphone 0.5 MG/0.5 ML SYRINGE IVP PRN (06:35)
--- NOTE | 2023-04-14 08:15 | P.PN ---
Progress Note - Text Progress Note Date: 04/14/23 (763) Anesthesiology Postop day 1 status post total knee arthroplasty with adductor canal catheter. Patient doing well. VAS 0 out of 10. Gross strength intact in lower extremity. Afebrile. Denies alterations in sensorium. Catheter site intact. Heart regular rate Lungs nonlabored Abdomen nondistended Assessment: Postop day 1 status post total knee arthroplasty with adductor canal catheter Plan: 1.All questions answered. Maintain catheter 2 more days with patient removal at home. Instructions to be given at discharge. 2.This note was dictated using [employer] software. Please be advised there is a potential for misspellings or errors in city assessor.
[2023-04-14 08:32] LABS: Basophils # (A) 0.03 X 10*3/uL (0.00-0.10); Basophils % (A) 0.2 %; Eosinophils # (A) 0.05 X 10*3/uL (0.04-0.35); Eosinophils % (A) 0.3 %; HCT 38.1 % (37.2-46.3); HGB 12.3 g/dL (12.0-15.0); Lymphocytes # (A) 0.86 X 10*3/uL (0.90-5.00); Lymphocytes % (A) 4.6 %; MCH 30.1 pg (27.0-32.0); MCHC 32.3 g/dL (32.0-37.0); MCV 93.4 FL (80.0-97.0); Mean Platelet Volume 10.2 FL (9.5-12.2); NRBC Per 100 WBC 0 X 10*3/uL (0.00-0.01); Neutrophils # (A) 16.33 X 10*3/uL (1.80-7.70); Neutrophils % (A) 86.5 %; Platelet Count 318 X 10*3/uL (140-440); RBC 4.08 X 10*6/uL (4.10-5.20); RDW 13.2 % (11.5-14.5); WBC 18.84 X 10*3/uL (4.50-10.00)
[2023-04-14] MEDS ORDERED: NON FORMULARY DRUG (Glucosamine/Chondr Su A Sod [Osteo Bi-Flex Caplet] 1 EACH Tablet) PO SCH (09:00)
[2023-04-14] MEDS ORDERED: NON FORMULARY DRUG (Omega-3/Dha/Epa/Fish Oil [Fish Oil 1,000 Mg Softgel] 1 EACH Capsule) PO SCH (09:00)
[2023-04-14] MEDS: METOPROLOL SUCCINATE (ER) 25 MG TAB.ER.24H PO SCH (09:30)
[2023-04-14] MEDS: MULTIVITAMINS, THERA 1 EACH TAB PO SCH (09:30)
[2023-04-14] MEDS: ASPIRIN 81 MG PO SCH (09:30)
[2023-04-14] MEDS: amLODIPine 5 MG TAB PO SCH (09:30)
[2023-04-14] MEDS: CHOLECALCIFEROL 25 MCG (1000 IU) TABLET PO SCH (09:30)
[2023-04-14] MEDS: LEVOTHYROXINE 100 MCG TAB PO SCH (09:30)
[2023-04-14] MEDS: HYDROcodone/APAP 7.5-325MG 1 EACH TAB PO PRN ×3 (09:30→20:44)
[2023-04-14] MEDS: ENOXAPARIN 30 MG/0.3 ML SYRINGE SQ SCH ×2 (09:31→20:44)
[2023-04-14] MEDS ORDERED: hydrOXYzine pamoate 25 MG CAP PO PRN (09:51)
--- NOTE | 2023-04-14 09:56 | P.PN ---
Subjective Progress Note Date: 04/14/23 Principal diagnosis: Left knee osteoarthritis Patient was seen at bedside this morning lying semirecumbent position with ice over the left knee. Patient just finished talking with special education case manager and work with physical therapy. Patient said she did do well with therapy and walk on the leong and up-and-down steps. Patient says she didn't feel that uneasy when she was walking with therapy. Patient is hoping to stay one more night for additional pain control. Patient says she does have a walker at home. Patient says she has urinated several times since surgery yesterday. Patient says she has not had a bowel movement yet, however, patient says she has been passing gas. Patient denies chest pain, fever, shortness breath, nausea, vomiting, change in vision, loss of bowel/bladder control. Objective - Vital Signs Vital signs: Vital Signs Temp 97.8 F 04/14/23 07:11 Pulse 84 04/14/23 07:11 Resp 16 04/14/23 07:11 BP 113/68 04/14/23 07:11 Pulse Ox 93 L 04/14/23 07:11 FiO2 Intake & Output 04/13/23 04/14/23 04/14/23 18:59 06:59 18:59 Intake Total 851 Output Total 55 Balance 796 Weight 105.3 kg Intake: IV 851 Output: Estimated Blood Loss 55 Other: Voiding Method Toilet # Voids 2 - Exam Left knee: Incision is clean, dry, and intact. The silver foam dressing is in good condition. There is minimal soft tissue swelling and ecchymosis surrounding the medial and lateral aspects of the incision. Calf is soft, no tenderness with palpation. Plantar flexion, dorsiflexion, EHL, FHL are intact. Sensory exam to light touch throughout the extremity is intact, dorsal pedis pulses 2+. - Labs CBC & Chem 7: 04/14/23 04:13 Labs: Abnormal Lab Results - Last 24 Hours (Table) 04/14/23 Range/Units 04:13 WBC 18.84 H (4.50-10.00) X 10*3/uL RBC 4.08 L (4.10-5.20) X 10*6/uL Immature Gran # 0.07 H (0.00-0.04) X 10*3/uL Neutrophils # 16.33 H (1.80-7.70) X 10*3/uL Lymphocytes # 0.86 L (0.90-5.00) X 10*3/uL Monocytes # 1.50 H (0.20-1.00) X 10*3/uL Assessment and Plan Assessment: 1. Left knee osteoarthritis - Postop day 1 status post left total knee arthroplasty Plan: 1. Left knee osteoarthritis - left total knee arthroplasty performed yesterday, 04/13/2023. patient did work with therapy this morning and in the stairs. Patient does have a walker home. we'll plan to keep patient 1 more night for additional pain control. Plan for discharge home tomorrow with health services. 2. appreciate medical management 3. pain management - [place]; Dilaudid; Vistaril 4. DVT prophylaxis - Lovenox 5. GI prophylaxis - senna 6. PT/OT - weightbearing as tolerated with walker 7. encourage incentive spirometer use 8. discharge planning - plan for discharge home tomorrow with health services Time with Patient: Less than 30
--- NOTE | 2023-04-14 13:58 | P.CONS ---
History of Present Illness - Reason for Consult Consult date: 04/14/23 Medical management Requesting physician: Thom Llanos - Chief Complaint Left knee osteoarthritis - History of Present Illness This is a 67-year-old female with past medical history significant for osteoarthritis, sleep apnea on CPAP, hypothyroidism, morbid obesity and multiple other medical issues. Patient underwent a left total knee arthroplasty, tolerated procedure well. Pain controlled, pain pump present. Denies cough ,congestion .maintaining O2 sats in the 90s on RA. Denies nausea vomiting or diarrhea. Passing flatus, no bowel movement Denies lightheadedness dizziness or focal deficit. Denies chest pain, palpitations or shortness of breath. Afebrile. Review of Systems Constitutional: Denied any fatigue denied any fever. Cardio vascular: denied any chest pain, palpitations Gastrointestinal denied any nausea vomiting Pulmonary: Denied any shortness of breath cough Neurologic denied any new focal deficits All inpatient medications were reviewed and appropriate changes in these medications as dictated in the interval history and assessment and plan. Past Medical History Past Medical History: Coronary Artery Disease (CAD), Cancer, Chest Pain / Angina, Hearing Disorder / Deafness, Hyperlipidemia, Hypertension, Osteoarthritis (OA), Sleep Apnea/CPAP/BIPAP, Thyroid Disorder Additional Past Medical History / Comment(s): VARICOSE VEINS,uses cpap,skin History of Any Multi-Drug Resistant Organisms: None Reported Past Surgical History: Heart Catheterization With Stent, Joint Replacement, Tonsillectomy Additional Past Surgical History / Comment(s): RT Total knee arthroplasty Past Anesthesia/Blood Transfusion Reactions: No Reported Reaction Additional Past Anesthesia/Blood Transfusion Reaction / Comm: no hx blood transfusion Date of Last Stent Placement:: 2 stents Past Psychological History: Anxiety Smoking Status: Never smoker Past Alcohol Use History: Occasional Additional Past Alcohol Use History / Comment(s): Patient is a lifelong nonsmoker. She drinks alcohol on a very rare basis. She is a teacher for second grade. She is and lives at home with HER-2 children, one boy and one girl. Past Drug Use History: None Reported - Past Family History Father Family Medical History: Cancer, Neurologic Disorder Mother Family Medical History: Congestive Heart Failure (CHF) Sister(s) Family Medical History: Cancer Additional Family Medical History / Comment(s): cervical Brother(s) Additional Family Medical History / Comment(s): One brother in a motor v ehicle accident. Medications and Allergies Home Medications Medication Instructions Recorded Confirmed Type Levothyroxine Sodium [Synthroid] 100 mcg PO QAM 04/21/14 04/13/23 History Metoprolol Succinate (ER) [Toprol 25 mg PO 1100 03/22/19 04/13/23 History XL] Aspirin 81 mg PO DAILY chew 03/30/19 04/13/23 Rx Atorvastatin [Lipitor] 80 mg PO HS #90 tab 03/30/19 04/13/23 Rx Acetaminophen Tab [Tylenol Tab] 500 mg PO Q6H PRN 03/25/23 04/13/23 History Ascorbic Acid [Vitamin C] 1,000 mg PO Q2D 03/25/23 04/13/23 History Cholecalciferol [Vitamin D3 (25 25 mcg PO DAILY 03/25/23 04/13/23 History Mcg = 1000 Iu)] Ezetimibe [Zetia] 10 mg PO HS 03/25/23 04/13/23 History Glucosamine/Chondr Rodriguez A Sod [Osteo 1 each PO DAILY 03/25/23 04/13/23 History Bi-Flex Caplet] Omeprazole [PriLOSEC] 20 mg PO HS PRN 03/25/23 04/13/23 History amLODIPine [Norvasc] 5 mg PO 1100 03/25/23 04/13/23 History Guinda-3/Dha/Epa/Fish Oil [Fish Oil 1,200 mg PO DAILY 04/10/23 04/13/23 History 1,000 mg Softgel] Allergies Allergy/AdvReac Type Severity Reaction Status Date / Time Sulfa (Sulfonamide Allergy Swelling Verified 04/13/23 13:04 Antibiotics) OF THROAT Physical Exam Vitals: Vital Signs Temp Pulse Resp BP Pulse Ox 04/14/23 07:11 97.8 F 84 16 113/68 93 L 04/14/23 02:00 97 F L 85 17 130/70 96 04/13/23 20:13 97.8 F 83 15 148/84 97 04/13/23 18:35 62 16 140/58 97 04/13/23 18:20 70 16 117/51 100 04/13/23 18:05 70 16 114/50 98 04/13/23 17:50 72 16 110/51 100 04/13/23 17:35 97.2 F L 72 16 118/61 100 04/13/23 14:13 72 16 132/58 99 Intake and Output 04/13/23 04/14/23 04/14/23 22:59 06:59 14:59 Intake Total 451 Output Total 55 Balance 396 Intake: IV 451 Output: Estimated Blood Loss 55 Other: Voiding Method Toilet Toilet # Voids 2 Weight 105.3 kg Gen: This is a 67-year-old female, sitting up in chair, no acute distress. HEENT: Head is atraumatic, normocephalic. Pupils equal, round. Sclerae is anicteric. Conjunctivae pink. MMM. NECK: Supple. No JVD. No lymphadenopathy. No thyromegaly. LUNGS: Clear to auscultation. No wheezes or rhonchi. No intercostal retract ions. HEART: Regular rate and rhythm. No murmur. ABDOMEN: Soft. Bowel sounds are present. No masses. No tenderness. EXTREMITIES: No pedal edema. No calf tenderness. Left knee dressing clean dry and intact, mild edema. Dorsalis pedis is +2 bilaterally. NEUROLOGICAL: Patient is awake, alert and oriented x3. Cranial nerves 2 through 12 are grossly intact. Results CBC & Chem 7: 04/14/23 04:13 Labs: Abnormal Lab Results - Last 24 Hours (Table) 04/14/23 Range/Units 04:13 WBC 18.84 H (4.50-10.00) X 10*3/uL RBC 4.08 L (4.10-5.20) X 10*6/uL Immature Gran # 0.07 H (0.00-0.04) X 10*3/uL Neutrophils # 16.33 H (1.80-7.70) X 10*3/uL Lymphocytes # 0.86 L (0.90-5.00) X 10*3/uL Monocytes # 1.50 H (0.20-1.00) X 10*3/uL Assessment and Plan Assessment: Left knee osteoarthritis status post left total knee arthroplasty Leukocytosis, suspect reactive Hypothyroidism Sleep apnea, uses CPAP Morbid obesity, BMI 41 Plan: Continue on current medication regime ,monitoring and symptomatic treatment. Pain management and DVT prophylaxis as per primary. PT. Aggressive pulmonary toileting with incentive spirometer reinforced. Thank you for the co nsult. Follow-up with PCP in one week. The impression and plan of care has been dictated as directed. : I performed a history and examination of this patient, discussed the same with the dictator. I agree with the dictator's note ,documented as a scribe. Any additional findings or plans will be noted.
[2023-04-14] MEDS: ATORVASTATIN 80 MG TAB PO SCH (20:44)
[2023-04-14] MEDS: SENNOSIDES-DOCUSATE SODIUM 1 EACH TAB PO SCH (20:44)
[2023-04-14] MEDS: EZETIMIBE 10 MG TAB PO SCH (20:44)
[2023-04-15 02:13] VITALS: TEMP 97.6
[2023-04-15] MEDS: HYDROcodone/APAP 7.5-325MG 1 EACH TAB PO PRN ×2 (04:12→10:43)
[2023-04-15 07:57] VITALS: BP 151/88; PULSE 102; RESP 16
[2023-04-15] MEDS: CHOLECALCIFEROL 25 MCG (1000 IU) TABLET PO SCH (09:41)
[2023-04-15] MEDS: ASPIRIN 81 MG PO SCH (09:41)
[2023-04-15] MEDS: LEVOTHYROXINE 100 MCG TAB PO SCH (09:41)
[2023-04-15] MEDS: ENOXAPARIN 30 MG/0.3 ML SYRINGE SQ SCH (09:42)
--- NOTE | 2023-04-15 10:16 | P.PN ---
Subjective Progress Note Date: 04/15/23 Principal diagnosis: Status post left total knee arthroplasty patient evaluated at bedside, she is resting comfortably. She's been ambulating well with a walker. Pain is well-controlled. She has eager to go home today. She denies headaches, lightheadedness, chest pain Objective - Vital Signs Vital signs: Vital Signs Temp 97.6 F 04/15/23 07:31 Pulse 102 H 04/15/23 07:31 Resp 16 04/15/23 07:31 BP 151/88 04/15/23 07:31 Pulse Ox 94 L 04/15/23 07:31 FiO2 Intake & Output 04/14/23 04/15/23 04/15/23 18:59 06:59 18:59 Other: Voiding Method Toilet Toilet # Voids 3 2 - Exam Left lower extremity: Incision is clean, dry, and intact. The foam dressing is in good condition. There is minimal soft tissue swelling and ecchymosis surrounding the medial and lateral aspects of the incision. Calf is soft, no tenderness with palpation. Plantar flexion, dorsiflexion, EHL, FHL are intact. Sensory exam to light touch throughout the extremity is intact, dorsal pedis pulses 2+. - Labs CBC & Chem 7: 04/14/23 04:13 Assessment and Plan Assessment: Postoperative day #2 status post left total knee arthroplasty Plan: Pain control, plan for discharge home on oral medications DVT prophylaxis, aspirin 81 mg twice a day for 30 days Wound care instructions were discussed, this including scarring instructions along with On-Q pain catheter Therapy/nursing after discharge Icing and elevating techniques discussed Medical recommendations appreciated Discharge planning: Plan for discharge home today Time with Patient: Less than 30
--- NOTE | 2023-04-15 10:21 | P.DS ---
Providers Date of admission: 04/14/23 10:39 Expected date of discharge: 04/15/23 Attending physician: Thom Llanos Consults: 04/13/23 17:13 Consult Physician Routine Consulting Provider: Ezequiel Kinney Reason/Comments: Medical management Do you want consulting provider notified?: Yes Primary care physician: Ezequiel Kinney Hospital Course: Date of admission: 04/14/2023 Date of discharge: 04/15/2023 Admission diagnosis: Status post left total knee arthroplasty Discharge diagnosis: Same Attending physician: Dr. Llanos Surgical procedures: Left total knee arthroplasty Brief history: Patient is a 67-year-old female with a history of progressive primary left knee osteoarthritis. At this point patient has failed conservative treatment measures and has opted to proceed with a elective left total knee arthroplasty. Hospital course: Details of patient's surgery can be found in operative report. Patient tolerated the procedure well and was subsequently transported to orthopedic floor. Patient's orthopeidc and medical care was provided daily. Patient had daily laboratory tests performed for evaluation of overall blood counts. Patient had daily physical therapy to include strengthening range of motion as well as education with walker ambulation. Patient was treated with Lovenox for their postoperative DVT prophylaxis during their inpatient stay. Patient was noted to have a relatively uneventful postoperative course. Patient reported satisfactory pain control with oral pain medications by postoperative day 1. Patient showed satisfactory progress with physical therapy. Patient moved steadily through the program and had no difficulty meeting the goals by postoperative day 2. Given patient's otherwise satisfactory course and having met physical therapy goals, plan is to discharge patient home on postoperative day 2. Discharge condition/disposition: Patient will be discharged home in stable condition. Discharge medications: Instructions are given on resumption of patient's normal daily medications per primary care recommendation, in addition patient will be prescribed aspirin 81 mg, Senokot-S. Discharge instructions: 1. Wound care and infection precautions, keep incision dry and covered while showering, no lotions, creams, moisturizers. No soaking, tubs, pools, hottubs. Do not scrub over the incision. 2. Weight-bear as tolerated with walker / cane until follow-up. 3. Ice and elevate when necessary. Do not exceed 20 minutes per hour with ice pack. 4. Utilize compression sleeve until seen at first follow up appointment. 5. Visiting nursing care. 6. Home physical therapy. 7. Pain meds and anticoagulants per prescription. 8. Pain medication has potential to cause constipation. Increase oral fluid and fiber intake. Contact primary care provider if you have not had a bowel movement within 48 hours after discharge 9. No anti-inflammatory medication until discussed at first post operative visit, this including Motrin, Aleve, Mobic, Diclofena. 10. Follow up in office at 2 weeks postop with Iftikhar Hernadez PA-C/Bandar Baker 11. Follow up with your primary care doctor 7-10 days after discharge. 12. Contact [facility] with any questions, . Procedures: Left total knee arthroplasty Patient Condition at Discharge: Good Plan - Discharge Summary Discharge Rx Participant: Yes New Discharge Prescriptions: New HYDROcodone/APAP 10-325MG [[place] 10-325] 1 tab PO Q6HR PRN 7 Days #28 tab PRN Reason: Pain Aspirin [Adult Low Dose Aspirin EC] 81 mg PO BID #60 tab Sennosides/Docusate Sodium [Senna-S 8.6-50 mg Tablet] 2 each PO DAILY PRN #30 tablet PRN Reason: Constipation No Action Levothyroxine Sodium [Synthroid] 100 mcg PO QAM Metoprolol Succinate (ER) [Toprol XL] 25 mg PO 1100 Aspirin 81 mg PO DAILY chew Atorvastatin [Lipitor] 80 mg PO HS #90 tab Cholecalciferol [Vitamin D3 (25 Mcg = 1000 Iu)] 25 mcg PO DAILY Glucosamine/Chondr Rodriguez A Sod [Osteo Bi-Flex Caplet] 1 each PO DAILY Ascorbic Acid [Vitamin C] 1,000 mg PO Q2D Acetaminophen Tab [Tylenol Tab] 500 mg PO Q6H PRN PRN Reason: Pain Echo-3/Dha/Epa/Fish Oil [Fish Oil 1,000 mg Softgel] 1,200 mg PO DAILY amLODIPine [Norvasc] 5 mg PO 1100 Ezetimibe [Zetia] 10 mg PO HS Omeprazole [PriLOSEC] 20 mg PO HS PRN PRN Reason: reflux Discharge Medication List Levothyroxine Sodium [Synthroid] 100 mcg PO QAM 04/21/14 [History] Metoprolol Succinate (ER) [Toprol XL] 25 mg PO 1100 03/22/19 [History] Aspirin 81 mg PO DAILY chew 12/04/19 [Rx] Atorvastatin [Lipitor] 80 mg PO HS #90 tab 03/30/19 [Rx] Acetaminophen Tab [Tylenol Tab] 500 mg PO Q6H PRN 03/25/23 [History] Ascorbic Acid [Vitamin C] 1,000 mg PO Q2D 03/25/23 [History] Cholecalciferol [Vitamin D3 (25 Mcg = 1000 Iu)] 25 mcg PO DAILY 03/25/23 [History] Ezetimibe [Zetia] 10 mg PO HS 03/25/23 [History] Glucosamine/Chondr Rodriguez A Sod [Osteo Bi-Flex Caplet] 1 each PO DAILY 03/25/23 [History] Omeprazole [PriLOSEC] 20 mg PO HS PRN 03/25/23 [History] amLODIPine [Norvasc] 5 mg PO 1100 03/25/23 [History] Echo-3/Dha/Epa/Fish Oil [Fish Oil 1,000 mg Softgel] 1,200 mg PO DAILY 04/10/23 [History] Aspirin [Adult Low Dose Aspirin EC] 81 mg PO BID #60 tab 04/15/23 [Rx] HYDROcodone/APAP 10-325MG [[place] 10-325] 1 tab PO Q6HR PRN 7 Days #28 tab 04/15/23 [Rx] Sennosides/Docusate Sodium [Senna-S 8.6-50 mg Tablet] 2 each PO DAILY PRN #30 tablet 04/15/23 [Rx] Follow up Appointment(s)/Referral(s): [facility],Equipment [NON-STAFF] - As Needed (*Call [facility] to arrange for delivery of the Continous Passive Motion (CPM) machine. ) [facility], [NON-STAFF] - 1-2 Days ([facility] will call you to schedule your in home physical therapy and nursing visits. ) Brigido Hernadez PAC [PHYSICIAN BIOLOGICAL SCIENCE TECHNICIAN] - 2 Weeks Activity/Diet/Wound Care/Special Instructions: Orthopedic Discharge Instructions: 1. Wound care and infection precautions, keep incision dry and covered while showering, no lotions, creams, moisturizers. No soaking, pools, hot tubs. Do not scrub over incision. 2. Weight-bear as tolerated with walker / cane until follow-up. 3. Ice and elevate when necessary. Do not exceed 20 minutes per hour with ice pack. 4. Utilize compression sleeve until seen at first follow up appointment. 5. Pain meds and anticoagulants per prescription. 6. Pain medication has potential to cause constipation. Increase oral fluid and fiber intake. Contact primary care provider if you have not had a bowel movement within 48 hours after discharge. 7. No anti-inflammatory medication until discussed at first post operative visit, this including Motrin, Aleve, Mobic, Diclofenac. 8. Follow up in office at 2 weeks postop with Iftikhar Hernadez PA-C/Bandar Norman PA-C 9. Follow up with your primary care doctor 7-10 days after discharge. 10. Contact [facility] with any questions, . Wound care instructions: 1. Okay to remove surgical dressing is a 04/20/2023 2. Okay to shower directly over the incision after removal of dressing Discharge Disposition: HOME WITH HOME HEALTH SERVICES
[2023-04-15] MEDS: LACTATED RINGERS 1,000 ML IV SCH ×2 (10:39)
[2023-04-15] MEDS: MULTIVITAMINS, THERA 1 EACH TAB PO SCH (10:47)
[2023-04-15] MEDS: amLODIPine 5 MG TAB PO SCH (10:47)
[2023-04-15] MEDS: METOPROLOL SUCCINATE (ER) 25 MG TAB.ER.24H PO SCH (10:47)
== END 2023-04-15 13:51 | disposition home health service (06) ==
LOC: OR 12:48 → 4SSUR 17:17 → OR 04-14 10:39
PROVIDERS: ADMIT Orthopaedic Surgery; ATTEND Orthopaedic Surgery
DX: M17.12 Unilateral primary osteoarthritis, left knee (principal); G89.18 Other acute postprocedural pain; D72.829 Elevated white blood cell count, unspecified; G47.30 Sleep apnea, unspecified; E03.9 Hypothyroidism, unspecified; I25.10 Atherosclerotic heart disease of native coronary artery without angina pectoris; E78.5 Hyperlipidemia, unspecified; I10 Essential (primary) hypertension; F41.9 Anxiety disorder, unspecified; E66.01 Morbid (severe) obesity due to excess calories; Z68.41 Body mass index [BMI] 40.0-44.9, adult; Z95.5 Presence of coronary angioplasty implant and graft; Z79.82 Long term (current) use of aspirin; Z79.890 Hormone replacement therapy; Z79.899 Other long term (current) drug therapy; Z88.2 Allergy status to sulfonamides
CPT/HCPCS: 96376; 96361; 96365; 96366; 96372 ×3; 96375; 97530; 97161; 64999; 64448; 85025; 73560; 27447; G0378 ×2; C1776; C1713 ×2; C1751; J2250; J0330; J1100; J2710; J0690 ×3; J2405; J2001; J3010; J1650 ×3; J2795; J2704; J1170 ×2

== ENCOUNTER → 2023-07-29 | Outpatient (CLI) | payer MEDICARE ==
--- NOTE | 2023-07-30 00:26 | MM ---
Reason for Exam: Screening (asymptomatic). Last mammogram was performed 1 year(s) and 4 month(s) ago. Patient History: Menarche at age 14. First Full-Term at age 27. Postmenopausal. Patient has history of breast feeding. Risk Values: Megan 5 year model risk: 1.7%. NCI Lifetime model risk: 5.9%. Prior Study Comparison: 03/23/2020 Bilateral Screening Mammogram, [facility]. 04/16/2021 Bilateral Screening Mammogram, [facility]. 04/23/2022 Bilateral MG 3D screening mammo w/cad, [facility]. Tissue Density: The breasts are heterogeneously dense, which may obscure small masses. Findings: Analyzed By CAD. The pattern is symmetrical. Scattered benign punctate calcifications are present. No significant interval change. No suspicious groups of microcalcifications, spiculated or lobular masses, architectural distortion or other secondary signs of malignancy are mammographically apparent. Overall Assessment: Benign, BI-RAD 2 Management: Screening Mammogram of both breasts in 1 year. A negative mammogram report should not preclude additional follow up of suspicious palpable abnormalities. Patient should continue monthly self breast exam. A clinical breast exam by your physician is recommended on an annual basis and results should be correlated with mammographic findings. Electronically signed and approved by: Shankar Greene D.O. Radiologis
== END | disposition home or self-care (01) ==
LOC: RADMAMWWP 13:00
PROVIDERS: ATTEND Family Medicine
DX: Z12.31 Encounter for screening mammogram for malignant neoplasm of breast (principal); Z78.0 Asymptomatic menopausal state
CPT/HCPCS: 77063; 77067